=== PATIENT | male | born 1965 | race Caucasian/White ===

== ENCOUNTER 2017-05-08 06:26 | Day surgery (SDC) | payer OTHER ==
[~2017-05-08] VITALS: Ht 170.2 cm; Wt 81.6 kg
[2017-05-08] MEDS ORDERED: [UNRECOGNIZED DRUG - CODE] PO (07:17)
[2017-05-08] MEDS ORDERED: CHOL400T12 PO (07:17)
[2017-05-08] MEDS ORDERED: LIDOCAINE 2% 100 MG/5 ML UJET TP ONE (08:05)
== END 2017-05-08 08:44 | disposition home or self-care (01) ==
LOC: MDS 06:26 → MMU 06:36 → MDS 08:44
PROVIDERS: ATTEND Internal Medicine Gastroenterology
DX: Z12.11 Encounter for screening for malignant neoplasm of colon (principal); E66.3 Overweight; Z90.49 Acquired absence of other specified parts of digestive tract; Z72.89 Other problems related to lifestyle; F17.210 Nicotine dependence, cigarettes, uncomplicated; Z68.27 Body mass index [BMI] 27.0-27.9, adult; Z79.899 Other long term (current) drug therapy